=== PATIENT | female | born 1975 | race Caucasian/White ===

== ENCOUNTER 2021-09-11 18:08 | Emergency (ER) | payer BC, SELFPAY ==
[2021-09-11 18:15] VITALS: BP 135/75; PULSE 92; RESP 16; TEMP 36.9; O2SAT 100
--- NOTE | 2021-09-11 18:19 | ED.NAVMDI ---
HPI - Nausea/Vomiting/Diarrhea General Chief complaint: Nausea/Vomiting/Diarrhea Stated complaint: Shortness of Breath/Vomiting Time Seen by Provider: 09/11/21 18:12 Source: patient and RN notes reviewed History of Present Illness HPI Narrative: Patient is a 46-year-old female who presents the urgent care with complaints of nausea, vomiting, diarrhea, shortness of breath, abdominal pain, chills, sweats. Patient states has been ongoing for the last 12 days. Patient states it is not persistent and she has been able to get on food and fluids. States that it intermittent and she feels that she can go back to work and then wakes up with increase symptoms . Patient denies of any ill exposures. Denies of any known fevers. Denies any abdominal illness in her past. Patient has been taking Zofran which she obtained from her sister. Patient states that she has not been to a doctor in many years. Denies any urinary symptoms. Currently denies of any chest pain. Patient is visibly unstable mentally with high anxiety and very emotional. Possibility that patient is under the influence of drugs or alcohol. acute medical distress noted. Patient does not appear dyspneic. No other acute complaints. Patient aware of the plan of care. Some parts of this dictation were generated by voice recognition software and may contain typographical and/or grammatical inaccuracies. Related Data Home Medications Medication Instructions Recorded Confirmed No Home Medications 09/11/21 09/11/21 Allergies Allergy/AdvReac Type Severity Reaction Status Date / Time No Known Allergies Allergy Verified 09/11/21 18:23 Review of Systems Review of Systems: CONSTITUTIONAL: Denies fever, chills, or sweats. EYES: Denies visual changes, redness, or discharge. ENT: Denies rhinorrhea, congestion, sore throat, or otalgia. CARDIOVASCULAR: Denies chest pain, palpitations, or edema. RESPIRATORY: Reports of shortness of breath GASTROINTESTINAL: Reports of abdominal pain, nausea, vomiting and diarrhea GENITOURINARY: Denies dysuria or hematuria. SKIN: Denies rash or itching. MUSCULOSKELETAL: Denies back pain, joint pain, or myalgia. NEUROLOGIC: Denies headache, numbness, or weakness. All other systems reviewed are negative, except as documented in HPI. PMFSH Comments At the time of my signature, I reviewed and agree with the nursing past medical, surgical, social, and family history. There is no relevant family history pertinent to the patient complaint. Exam Narrative: GENERAL: This is a well-nourished, well-developed patient. Emotional, anxious, and unstable HEAD: normocephalic, atraumatic. EYES: PERRL. Sclera clear/white. Vision is grossly intact. EARS: External ears normal NOSE: External nose normal with no obvious nasal discharge, nares without redness, no rhinorrhea. THROAT: Mucous membranes moist NECK: Neck supple CARDIOVASCULAR: Regular rate and rhythm without murmurs, gallops, or rubs. RESPIRATORY: Clear to auscultation. Breath sounds equal bilaterally. No wheezes, rales, or rhonchi. GASTROINTESTINAL: Bowel sounds are active. Moderate diffuse tenderness throughout without distention SKIN: warm, intact with no suspicious lesions or rash, good texture and turgor. NEURO: awake, alert, and oriented to person, place and time. There were no obvious focal neurologic abnormalities. EXTREMITIES: No clubbing, cyanosis, or edema. Course Course Level of Care: Express Care Visit Vital Signs Vital signs: Vital Signs Temperature 98.5 F 09/11/21 18:15 Pulse Rate 92 09/11/21 18:15 Respiratory Rate 16 09/11/21 18:15 Blood Pressure 135/75 09/11/21 18:15 Pulse Oximetry 100 09/11/21 18:15 Oxygen Delivery Room Air 09/11/21 18:15 Temperature 98.5 F 09/11/21 18:15 Pulse Rate 92 09/11/21 18:15 Respiratory Rate 16 09/11/21 18:15 Blood Pressure 135/75 09/11/21 18:15 Pulse Oximetry 100 09/11/21 18:15 Oxygen Delivery Room Air
== END 2021-09-11 18:36 | disposition left against medical advice (07) ==
PROVIDERS: Emergency Provider Nurse Practitioner Family
DX: F41.9 Anxiety disorder, unspecified (principal); R11.2 Nausea with vomiting, unspecified; J44.9 Chronic obstructive pulmonary disease, unspecified; M81.0 Age-related osteoporosis without current pathological fracture; N80.9 Endometriosis, unspecified; Z85.828 Personal history of other malignant neoplasm of skin
CPT/HCPCS: 99211; G0463

== ENCOUNTER 2021-09-23 16:58 | Emergency (ER) | payer BC, SELFPAY ==
--- NOTE | 2021-09-23 17:03 | ED.DENTAL ---
HPI - Dental/Oral General Chief complaint: Skin/Abscess/Foreign Body Stated complaint: Swollen right jaw Time Seen by Provider: 09/23/21 17:04 Source: patient and RN notes reviewed History of Present Illness HPI Narrative: Patient is a 46-year-old female who presents the urgent care with complaints of left lower jaw swelling. Patient states that it started yesterday and she noticed it when she bent over and felt that she had heaviness in her jaw . Patient has been taking ibuprofen. States that she was seen in the ER approximately 8 or 9 days ago and was diagnosed with bronchitis, UTI and a right ear infection. Patient was placed on prednisone, Augmentin, and an inhaler. Patient states she has 2 doses of the Augmentin left and did finish the prednisone. Denies of any recent fevers, nausea or vomiting. No other acute complaints. No acute distress noted. Patient aware of the plan of care. Some parts of this dictation were generated by voice recognition software and may contain typographical and/or grammatical inaccuracies. Related Data Allergies Allergy/AdvReac Type Severity Reaction Status Date / Time No Known Allergies Allergy Verified 09/23/21 17:12 Review of Systems Review of Systems: CONSTITUTIONAL: Denies fever, chills, or sweats. EYES: Denies visual changes, redness, or discharge. ENT: Denies rhinorrhea, congestion, sore throat, or otalgia. Reports of right lower jaw swelling CARDIOVASCULAR: Denies chest pain, palpitations, or edema. RESPIRATORY: Denies cough or dyspnea. GASTROINTESTINAL: Denies abdominal pain, nausea, vomiting, or diarrhea. GENITOURINARY: Denies dysuria or hematuria. SKIN: Denies rash or itching. MUSCULOSKELETAL: Denies back pain, joint pain, or myalgia. NEUROLOGIC: Denies headache, numbness, or weakness. All other systems reviewed are negative, except as documented in HPI. PMFSH Comments At the time of my signature, I reviewed and agree with the nursing past medical, surgical, social, and family history. There is no relevant family history pertinent to the patient complaint. Exam Narrative: GENERAL: This is a well-nourished, well-developed patient, in no apparent distress. HEAD: normocephalic, atraumatic. EYES: PERRL. Sclera clear/white. Vision is grossly intact. EARS: External ears normal, auditory canals clear and without drainage, TMs normal without perforation. Hearing grossly intact. NOSE: External nose normal with no obvious nasal discharge, nares without redness, no rhinorrhea. THROAT: Mucous membranes moist, posterior pharynx clear. Moderate postnasal drainage DENTAL: Multiple avulsed dentition with scattered caries throughout. Consistent with trench mouth. Moderate tenderness to the right mandible with mild edema to the mid right mandible region with moderate tenderness NECK: Neck supple, non-tender without lymphadenopathy, masses or thyromegaly. CARDIOVASCULAR: Regular rate and rhythm without murmurs, gallops, or rubs. RESPIRATORY: Clear to auscultation. Breath sounds equal bilaterally. No wheezes, rales, or rhonchi. SKIN: warm, intact with no suspicious lesions or rash, good texture and turgor. NEURO: awake, alert, and oriented to person, place and time. There were no obvious focal neurologic abnormalities. EXTREMITIES: No clubbing, cyanosis, or edema. Course Course Level of Care: Express Care Visit Vital Signs Vital signs: Vital Signs Temperature 97.6 F 09/23/21 17:04 Pulse Rate 93 09/23/21 17:04 Respiratory Rate 14 09/23/21 17:04 Blood Pressure 106/66 09/23/21 17:04 Pulse Oximetry 98 09/23/21 17:04 Oxygen Delivery Room Air 09/23/21 17:04 Temperature 97.6 F 09/23/21 17:04 Pulse Rate 93 09/23/21 17:04 Respiratory Rate 14 09/23/21 17:04 Blood Pressure 106/66 09/23/21 17:04 Pulse Oximetry 98 09/23/21 17:04 Oxygen Delivery Room Air 09/23/21 17:04 Reviewed MDM - Dental/Oral MDM Narrative Medical decision making narrative: Advised t
[2021-09-23 17:04] VITALS: BP 106/66; PULSE 93; RESP 14; TEMP 36.4; O2SAT 98
== END 2021-09-23 17:32 | disposition home or self-care (01) ==
PROVIDERS: Emergency Provider Nurse Practitioner Family
DX: R22.0 Localized swelling, mass and lump, head (principal); J44.9 Chronic obstructive pulmonary disease, unspecified; M81.0 Age-related osteoporosis without current pathological fracture; N80.9 Endometriosis, unspecified; Z85.828 Personal history of other malignant neoplasm of skin
CPT/HCPCS: 99213; G0463

== ENCOUNTER 2021-11-25 12:34 | Emergency (ER) | payer BC, OTHER, SELFPAY ==
[2021-11-25 12:45] VITALS: BP 104/66; PULSE 98; RESP 18; TEMP 36.1; O2SAT 98
--- NOTE | 2021-11-25 13:11 | ED.GENADULT ---
HPI - General Adult General Chief complaint: Unspecified Stated complaint: Right Jaw Pain Time Seen by Provider: 11/25/21 13:11 Source: patient Mode of arrival: ambulatory History of Present Illness HPI narrative: 46 y/o male presented for c/o right jaw and ear pain since yesterday morning. Endorses swelling to the area of broken teeth. Denies drainage, nausea, vomiting, or fever. Taking ibuprofen. Has not established pcp or dentist. Related Data Allergies Allergy/AdvReac Type Severity Reaction Status Date / Time No Known Allergies Allergy Verified 11/25/21 12:54 Review of Systems Review of Systems: CONSTITUTIONAL: Denies body aches, fever, chills ENT: Denies rhinorrhea, congestion, sore throat, or otalgia. Reports dental pain CARDIOVASCULAR: Denies chest pain, palpitations RESPIRATORY: Denies cough or dyspnea. SKIN: Denies rash, itching, or wounds. MUSCULOSKELETAL: Denies myalgia. NEUROLOGIC: Denies headache, numbness, tingling, or weakness. PMFSH Comments At time of signature, I have reviewed and agree with nursing past medical, surgical, social and family history unless otherwise noted. Please see nursing chart for further information. There is no relevant family history pertinent to the presenting complaint Exam Narrative: GENERAL: Appears in pain; no acute distress. HEAD: Normocephalic, atraumatic. EYES: EOMI. No redness or drainage. Conjunctivae normal. ENT: Dental pain location #[id number],#[id number] with moderate lateral gum swelling, multiple broken teeth and caries, no active drainage, site is tender . Mucous membranes pink and moist. TMs normal bilaterally. Throat normal. Uvula midline. NECK: Normal AROM. No lymphadenopathy. CHEST: Clear to auscultation. HEART: Regular rate and rhythm. SKIN: Warm, dry, no rash. Normal skin turgor. NEURO: Alert and oriented x3. Gait steady. Course Course Emergency Course: Patient is aware of diagnosis, understands and agrees to treatment plan. Anticipatory guidance given. Patient agrees to follow-up as directed and is aware of reasons to seek care at the emergency department. Portions of this record may have been created with voice recognition software Level of Care: Express Care Visit Vital Signs Vital signs: Vital Signs Temperature 97.0 F L 11/25/21 12:45 Pulse Rate 98 11/25/21 12:45 Respiratory Rate 18 11/25/21 12:45 Blood Pressure 104/66 11/25/21 12:45 Pulse Oximetry 98 11/25/21 12:45 Oxygen Delivery Room Air 11/25/21 12:45 Temperature 97.0 F L 11/25/21 12:45 Pulse Rate 98 11/25/21 12:45 Respiratory Rate 18 11/25/21 12:45 Blood Pressure 104/66 11/25/21 12:45 Pulse Oximetry 98 11/25/21 12:45 Oxygen Delivery Room Air 11/25/21 12:45 Medical Decision Making MDM Narrative Medical decision making narrative: PE consistent with dental abscess. There are no focal signs of space occupying lesions that are compromising to the airway; No uvular deviation or soft palate edema. Patient is non-toxic appearing. The floor of the mouth is soft with no signs of Christopher's Angina; no induration below mandible, no neck pain. Advised supportive measures and signs/symptoms to go to the ER. Pt is appropriate for outpt treatment and f/u with dentist. Differential Diagnosis Differential Diagnosis: dental abscess, dental caries, toothache, aphthous ulcer Vital Signs Vital Signs: Vital Signs Temperature 97.0 F L 11/25/21 12:45 Pulse Rate 98 11/25/21 12:45 Respiratory Rate 18 11/25/21 12:45 Blood Pressure 104/66 11/25/21 12:45 Pulse Oximetry 98 11/25/21 12:45 Oxygen Delivery Room Air 11/25/21 12:45 Temperature 97.0 F L 11/25/21 12:45 Pulse Rate 98 11/25/21 12:45 Respiratory Rate 18 11/25/21 12:45 Blood Pressure 104/66 11/25/21 12:45 Pulse Oximetry 98 11/25/21 12:45 Oxygen Delivery Room Air 11/25/21 12:45 Discharge Plan Discharge Clinical Impression: Dental abscess Patient Dispo
== END 2021-11-25 13:22 | disposition home or self-care (01) ==
PROVIDERS: Emergency Provider Nurse Practitioner Family
DX: K04.7 Periapical abscess without sinus (principal); J44.9 Chronic obstructive pulmonary disease, unspecified; M81.0 Age-related osteoporosis without current pathological fracture; N80.9 Endometriosis, unspecified; Z85.828 Personal history of other malignant neoplasm of skin
CPT/HCPCS: 99213; G0463